=== PATIENT | female | born 1990 | race Caucasian/White ===

== ENCOUNTER 2023-03-02 10:46 | Emergency (ER) | payer OTHER, SELFPAY ==
--- NOTE | ~2023-03-02 | XR_ITS ---
XR shoulder LT min 2V DATE: 03/02/2023 11:55 INDICATION: Fall. Left shoulder pain. TECHNIQUE: 4 views COMPARISON: None FINDINGS: No fracture or dislocation, periosteal reaction or bone destruction or abnormal soft tissue calcification. IMPRESSION: Negative Reviewed, dictated and finalized at location A. WORKER IMPRESSION: Negative
--- NOTE | ~2023-03-02 | XR_ITS ---
XR elbow LT min 3V DATE: 03/02/2023 11:54 INDICATION: Fall. Left elbow injury, pain TECHNIQUE: 4 views of left elbow COMPARISON: None FINDINGS: No fracture or dislocation or joint effusion. No periosteal reaction or bone destruction. IMPRESSION: Negative Reviewed, dictated and finalized at location A. [facility] [employer] IMPRESSION: Negative
[2023-03-02 11:41] VITALS: BP 129/72; PULSE 86; RESP 18; TEMP 36.3; O2SAT 100
--- NOTE | 2023-03-02 12:08 | ED.UPPEXIN ---
HPI - Extremity Injury (Upper) General Chief Complaint: Extremity Injury, Upper Stated Complaint: fall upper extremity injury Time Seen by Provider: 03/02/23 11:45 Source: patient Mode of arrival: ambulatory Limitations: no limitations History of Present Illness HPI narrative: Ibis is a 32-year-old female patient presenting to the clinic today with complaints of a fall yesterday off a step and injuring her left shoulder and left elbow yesterday. Is having pain with range of motion to the left shoulder and some tenderness to palpation of the your the left elbow. Related Data Home Medications Medication Instructions Recorded Confirmed No Home Medications 03/02/23 03/02/23 Allergies Allergy/AdvReac Type Severity Reaction Status Date / Time No Known Allergies Allergy Unverified 12/11/11 19:36 Review of Systems Review of Systems: Pertinent positives per HPI. Patient denies any fever, chills, rash, headache, visual changes, dizziness, cough, shortness of breath, chest pain, palpitations, nausea, vomiting, diarrhea, constipation, abdominal pain, or any urinary issues. PMFSH Comments At the time of my signature, I reviewed and agree with the nursing past medical, surgical, social, and family history. There is no relevant family history pertinent to the patient complaint. Exam Narrative: General: Well-developed, well nourished, in no apparent distress Head: Normocephalic, atraumatic. Cardio: Regular rate and rhythm, s1 and s2 normal, no murmur appreciated. Resp: Clear to auscultation bilaterally, no rhonchi, rales, wheezing or rubs. Musculoskeletal: No deformity, tender to palpation over the left anterior shoulder and posterior elbow, limited range of motion to the left shoulder-is unable to lift above her head without significant pain, negative empty can and full can testing, no pain with cross-arm test, tender to palpation over the posterior left elbow with normal range of motion, muscle strength strong and equal, peripheral pulse strong, no edema, no cyanosis, normal gait and station Course Course Emergency Course: Portions of this record may have been created with voice recognition software. Level of Care: Express Care Visit Vital Signs Vital signs: Vital Signs Temperature 36.3 C L 03/02/23 11:41 Pulse Rate 86 03/02/23 11:41 Respiratory Rate 18 03/02/23 11:41 Blood Pressure 129/72 03/02/23 11:41 Pulse Oximetry 100 03/02/23 11:41 Oxygen Delivery Room Air 03/02/23 11:41 Temperature 36.3 C L 03/02/23 11:41 Pulse Rate 86 03/02/23 11:41 Respiratory Rate 18 03/02/23 11:41 Blood Pressure 129/72 03/02/23 11:41 Pulse Oximetry 100 03/02/23 11:41 Oxygen Delivery Room Air 03/02/23 11:41 Vital signs reviewed MDM - Extremity Injury (Upper) MDM Narrative Medical decision making narrative: At the time of visit patient is resting comfortably on the exam table. Patient appears to be nontoxic. X-ray of the left shoulder and the left elbow lower are negative in the clinic today. I suspect patient has the elbow contusion and shoulder strain. Supportive measures were discussed with the patient and they voiced understanding discharge instructions and agrees to treatment plan. Return precautions reviewed Differential Diagnosis Differential diagnosis: Likely dislocation of shoulder, fracture of humerus and other ( clavicle fracture, contusion, soft tissue) Imaging Data Radiologist's impression: ITS Impressions Elbow X-Ray 03/02/23 12:13 IMPRESSION: Negative Shoulder X-Ray 03/02/23 12:14 IMPRESSION: Negative Discharge Plan Discharge Clinical Impression: Contusion of elbow Qualifiers: Encounter type: initial encounter Laterality: left Qualified Code(s): S50.02XA - Contusion of left elbow, initial encounter Shoulder sprain Qualifiers: Encounter type: initial encounter Shoulder sprain type: other part of shoulder region Laterality:
== END 2023-03-02 12:40 | disposition home or self-care (01) ==
PROVIDERS: Emergency Provider Nurse Practitioner Family; PCP Family Medicine
DX: S50.02XA Contusion of left elbow, initial encounter (principal); S43.492A Other sprain of left shoulder joint, initial encounter; W10.9XXA Fall (on) (from) unspecified stairs and steps, initial encounter
CPT/HCPCS: 73030; 73080; 99214; A4565; G0463